=== PATIENT | male | born 1960 | race Caucasian/White ===

== ENCOUNTER 2018-05-26 14:58 | Outpatient (CLI) | payer BC ==
--- NOTE | 2018-05-27 09:19 | MRI ---
MRI RIGHT KNEE: DATE: 05/26/18. PROVIDED CLINICAL HISTORY: Right knee pain. FINDINGS: The anterior cruciate ligament, posterior cruciate ligament, medial collateral ligament, and lateral collateral ligamentous complex demonstrate an intact MR appearance, as does the extensor mechanism. There is complete nondisplaced. The medial meniscus demonstrates no evidence for tear. There is articular cartilage irregularity involving the lateral femorotibial joint. There is signal inhomogeneity involving the patellar articular cartilage. There is a small knee joint effusion. No focal concerning regional marrow or muscular signal abnorma lity is apparent. IMPRESSION: 1. Complex nondisplaced lateral meniscal tear. 2. Small knee joint effusion. 3. Lateral femorotibial and patellofemoral articular chondrosis. POS: [facility]
== END 2018-05-26 14:59 | disposition home or self-care (01) ==
LOC: TBSIIMAG 14:58
PROVIDERS: ATTEND Family Medicine
DX: M25.561 Pain in right knee (principal); S83.281A Other tear of lateral meniscus, current injury, right knee, initial encounter; M25.461 Effusion, right knee

== ENCOUNTER 2019-09-19 08:08 | Outpatient (CLI) | payer BC ==
--- NOTE | 2019-09-19 10:39 | MRI ---
MRI PELVIS WITH AND WITHOUT CONTRAST: History: R97.2. Elevated PSA. Comparison: None. Findings: Multiplanar multisequence MRI of the pelvis performed prior to and after the intravenous administrati on of contrast. The exam was reviewed on an independent 3D workstation. Diffusion restriction evaluation is limited due to the amount of stool within the rectum. The prostate measures 4.6 x 2.7 x 3.8 cm for a volume of 23.93 mL. Full zone: No significant diffusion restriction within the peripheral zone. Transitional zone: There is lentiform bowel circumscribed homogeneous moderately hyperintense signal throughout the transitional zone from the base to the apex with associated high-grade diffusion restriction as well as type I kinetics. The signal alteration involves the anterior fibromuscular stroma and extends near the base of the uri nary bladder. Prostatic capsule: Intact Neurovascular bundles: Intact Lymph nodes: Small bilateral external iliac lymph nodes. No adenopathy. Bones: On the large [id number] T1 weighted imaging sequence there are no abnormal foci of marrow s ignal replacement to suggest osseous metastatic disease. Pelvic soft tissues: Moderate fat containing right indirect inguinal hernia. Impression: 1. PI-RADS Category 5: Very high (clinically significant cancer is highly likely to be present). This throughout the transitional zone from the base to the apex extending into the anterior fibromuscular stroma with a size of 2.5 x 1 x 2 cm. 2. No evidence for local regional lymphatic or osseous metastatic disease. 3. Intact neurovascular bundles and prostatic capsule. 4. No definite seminal vesicle nor urinary bladder involvement. Transcribed Date/Time: 09/19/2019 10:45 AM
[2019-09-19] MEDS ORDERED: Magnevist 469MG/ML 20 ML VIAL ONE (16:36)
== END 2019-09-19 08:09 | disposition home or self-care (01) ==
LOC: TBSIIMAG 08:08
PROVIDERS: ATTEND Urology
DX: R97.20 Elevated prostate specific antigen [PSA] (principal)
CPT/HCPCS: 72197; A9579

== ENCOUNTER 2019-09-28 08:00 | Outpatient (CLI) | payer BC ==
--- NOTE | 2019-09-28 08:59 | CT ---
CT Abdomen Pelvis W WO con HISTORY: Elevated PSA COMPARISON: None. FINDINGS: There is elevation of the left hemidiaphragm with adjacent mild atelectatic change. No calc ified gallstones are seen. The liver, spleen, pancreas and adrenal glands are normal. No calculi are seen in the kidneys, ureters or the urinary bladder. No hydroureteronephrosis seen on either side. There is a 11 x 12 x 19 mm low-density lesion in the right inferior renal cortex which does not meet CT criteria for a simple cyst. There is normal contrast excretion into the pelvic calyc eal systems and ureters bilaterally. No free air, free fluid or lymphadenopathy seen in the abdomen or pelvis. There are vascular calcific ations without evidence of aneurysmal dilatation of the abdominal aorta. There are degenerative changes in the spine. IMPRESSION: Indeterminate lesion in the inferior pole of the right kidney. Evaluation with ultrasound would be helpful.
[2019-09-28] MEDS ORDERED: Iopamidol-370 76% 500 ML 1 ML ONE (13:47)
== END 2019-09-28 08:01 | disposition home or self-care (01) ==
LOC: BICCT 08:00
PROVIDERS: ATTEND Urology
DX: R97.20 Elevated prostate specific antigen [PSA] (principal); R33.9 Retention of urine, unspecified; R82.71 Bacteriuria; R31.29 Other microscopic hematuria
CPT/HCPCS: 74178; Q9967

== ENCOUNTER 2019-10-16 06:34 | Day surgery (SDC) | payer BC ==
[2019-10-06 12:49] VITALS: BMI 33.7
[2019-10-06 14:00] LABS: Hemoglobin 15.6 g/dL (14.0-18.0); Mean Corpuscular HGB CONC 32.9 g/dL (32.0-36.0); Mean Corpuscular Hemoglobin 28.8 pg (27.0-31.0); Mean Corpuscular Volume 87.8 fL (78.0-98.0); Mean Platelet Volume 7.1 fL (7.4-10.4); Platelet Count 256 thou/uL (130-400); RBC Distribution Width 11.9 % (11.5-14.5); White Blood Cell (WBC) Count 10.9 thou/uL (4.8-10.8)
[2019-10-06 14:04] LABS: PTT 30.2 SEC (22.9-36.1); Prothrombin Time 12.7 SEC (12.0-14.7)
[2019-10-06 14:06] LABS: Bacteria/HPF None Seen HPF (None Seen); Bilirubin Negative (Negative); Blood, Urine Negative (Negative); Clarity Clear (Clear); Glucose, Urine (Dipstick) Normal (Negative); Leukocyte Negative Leu/uL (Negative); Nitrite Negative (Negative); Protein, Urine (Dipstick) Negative (Neg-Trace); RBC/HPF 0-3 HPF (0-3); Squamous Epithelial None Seen HPF (0-3); Urobilinogen Normal mg/dL (Less than 2); WBC/HPF 0-3 HPF (0-3)
[2019-10-06 14:21] LABS: Anion Gap 14 mmol/L (10-20); BUN (Urea Nitrogen) 16 mg/dL (8.4-25.7); Calc. Creatinine Clearance 158 mL/min (70-130); Calcium 9.5 mg/dL (7.8-10.44); Carbon Dioxide 28 mmol/L (22-29); Chloride 104 mmol/L (98-107); Estimated GFR-MDRD 79; Glucose 85 mg/dL (70-105); Potassium 4.2 mmol/L (3.5-5.1); Sodium 142 mmol/L (136-145)
--- NOTE | 2019-10-09 18:57 | EKG ---
Test Reason : Blood Pressure : / mmHG Vent. Rate : 085 BPM Atrial Rate : 085 BPM P-R Int : 164 ms QRS Dur : 094 ms QT Int : 374 ms P-R-T Axes : 042 037 047 degrees QTc Int : 445 ms Normal sinus rhythm Increased R/S ratio in V1, consider early transition or posterior infarct Abnormal ECG When compared with ECG of 19-JAN-2005 07:15, No significant change was found Confirmed by ELANA RAMOS, SIshmael ([id number]) on 10/09/2019 6:57:26 PM Referred By: NISHI Confirmed By:DR. Jewels HUITRON MD
[2019-10-16] MEDS ORDERED: cefTRIAXone\\ROCEPHIN 2 GM VIAL ONE (07:31)
[2019-10-16] MEDS ORDERED: Levofloxacin 500 mg/D5W 100 ml Premix Bag ONE (07:31)
[2019-10-16] MEDS ORDERED: Sodium Chloride 0.9% 100 ML ONE (07:31)
[2019-10-16] MEDS ORDERED: Fentanyl 100 MCG/2 ML VIAL ONE (09:35)
[2019-10-16] MEDS ORDERED: Midazolam HCl 2 mg/2 ml Vial ONE (09:35)
[2019-10-16] MEDS ORDERED: PROPOFOL 200 MG/20 ML VIAL ONE (10:49)
[2019-10-16] MEDS ORDERED: ePHEDrine/0.9% NaCl/PF SYRINGE 50 mg/10 ml ONE (10:49)
[2019-10-16] MEDS ORDERED: Lidocaine 1% PF 5 ML VIAL ONE (10:49)
[2019-10-16] MEDS ORDERED: Phenazopyridine HCl 97.5 MG TABLET ONE ×2 (10:50)
--- NOTE | 2019-10-16 14:14 | OP ---
DATE OF PROCEDURE: 10/16/2019 PRIMARY CARE PHYSICIAN: Rosi Beltran DO. PREOPERATIVE DIAGNOSES: 1. A 59-year-old male with history of elevated PSA, prior biopsy negative for malignancy. 2. Persistent elevated PSA with increased PSA velocity of 7.2. 3. Unremarkable digital rectal examination. 4. Microscopic hematuria. POSTOPERATIVE DIAGNOSES: 1. A 59-year-old male with history of elevated PSA, prior biopsy negative for malignancy. 2. Persistent elevated PSA with increased PSA velocity of 7.2. 3. Unremarkable digital rectal examination. 4. Microscopic hematuria. PROCEDURES PERFORMED: 1. Flexible cystoscopy. 2. Transrectal ultrasound volume study. 3. Standard 12-core needle biopsy. 4. MRI fusion biopsy of region of interest. ANESTHESIA: LMA. COMPLICATIONS: None apparent. DISPOSITION: To recovery room in stable condition. INDICATIONS FOR PROCEDURE AND HISTORY: Mr. Rubin is a pleasant 59-year-old male with history of elevated PSA, family history of prostate cancer, in which he initially underwent prostate biopsy for elevated PSA, negative for malignancy. He had persistent elevated PSA with increased velocity of concern. Therefore, MRI was obtained, which does demonstrate a region of interest, PI-RADS 5, located in the anterior transitional zone base to apex measuring 2.5 x 1 x 2.0 cm. There is no significant lymphadenopathy with an intact neurovascular bundle. He was advised regarding MRI fusion biopsy. Subsequently, he has microscopic hematuria with CT demonstrates indeterminate small endophytic renal cyst on surveillance and presents today for concomitant flexible cystoscopy. Indications were reviewed as well as risks and complications including, but not limited to: Bleeding, pain, infection, injury to adjacent organs, urosepsis, chronic pain. Questions answered to his satisfaction. He desired to proceed. DESCRIPTION OF PROCEDURE: After an informed consent was signed, the patient was taken to the operating room and placed in a dorsal lithotomy position with the genital area prepped and draped in the usual surgical sterile fashion. Bilateral MAT hose SCDs and broad-spectrum antibiotics were placed. The patient was placed in supine position and we performed a flexible cystoscopy, which demonstrated normal anterior and posterior urethra with no evidence of urethral stricture. Mild bilobar hyperplasia was noted with no significant intravesical median lobe. The bladder was grossly unremarkable with no bladder tumors, stones, lesions of concern. The ureteral orifices were about 3 to 4 mm proximal to the bladder neck. At this time, a 16-Kazakh Brown catheter was placed and he was transitioned to a left lateral decubitus position with all pressure points padded and protected. A transrectal ultrasound probe was placed and we measured the prostate volume: Length of urethral length of 3.6, width of 4.3, height of 2.8, volume estimated to be 23.4 g. We subsequently left the Brown catheter in situ, to monitor degree of hematuria. At this time, we performed a region of interest. The region of interest was quite large and easily localized. We passed 4 needles at the region of interest and set as a separate cassette. Then, we subsequently performed 12 standard needle core prostate biopsy in a standard fashion, which he tolerated the procedure. Brown catheter was removed and he tolerated the procedure well and transported to the recovery room in stable condition. He is discharged with Levaquin x3 days, will follow up with me on 10/24 to review pathology. Job ID: [id number] [facility] HOSPITALIsabel
== END 2019-10-16 13:30 | disposition home or self-care (01) ==
LOC: SDC 06:34
PROVIDERS: ATTEND Urology
PROC: 0VB03ZX Excision of Prostate, Percutaneous Approach, Diagnostic (ICD-10-PCS; principal; 2019-10-16)
DX: C61 Malignant neoplasm of prostate (principal); N40.1 Benign prostatic hyperplasia with lower urinary tract symptoms; R33.8 Other retention of urine; R31.29 Other microscopic hematuria; R82.71 Bacteriuria; E78.00 Pure hypercholesterolemia, unspecified; Z91.018 Allergy to other foods
CPT/HCPCS: 80048; 81001; 85027; 85610; 85730; 87086; 88305; 93005; 93010; J0696; J1956; J2001; J2250; J2704; J3010; J3490

== ENCOUNTER 2019-12-12 07:50 | Outpatient (CLI) | payer BC ==
[2019-12-12] MEDS ORDERED: Magnevist 469MG/ML 20 ML VIAL ONE (10:06)
--- NOTE | 2019-12-12 15:45 | MRI ---
MRI OF THE PROSTATE WITHOUT AND WITH CONTRAST: 12/12/19 COMPARISON: None. HISTORY: Prostate cancer. Biopsy done in July. TECHNIQUE: Multiplanar and multisequence MR images were obtained of the prostate without and with IV contrast. FINDINGS: There is a large amount of stool and air in the patient's rectum which produces artifact on the diffu joseph sequence and ADC map limiting evaluation on this exam. There is mild hypertrophy of the central gland consistent with BPH. Prostate volume is approximately 22 mL. No suspicious low T2 signal is seen within the prostate. No IVS restricted diffusion is seen within t he prostate, but evaluation is limited. No obvious low signal is seen on the ADC map within the prost ate. No suspicious enhancement is seen within the prostate. The seminal vesicles are intact. Neurovascular bundles are intact. No pelvic adenopathy is seen. No m arrow signal abnormality is present. A small diverticulum is seen emanating from the left aspect of the urinary bladder. IMPRESSION: PI-RADS category 2 - low likelihood that a clinically significant cancer is present. Please note that this exam is limited secondary to significant amount of stool and air in the patient 's rectum. POS: [facility]
== END 2019-12-12 07:51 | disposition home or self-care (01) ==
LOC: TBSIIMAG 07:50
PROVIDERS: ATTEND Urology
DX: C61 Malignant neoplasm of prostate (principal)
CPT/HCPCS: 72197; A9579

== ENCOUNTER 2020-06-11 14:27 | Outpatient (CLI) | payer BC ==
[~2020-06-11 14:27] MED LIST: Iopamidol 370 76% 100 ML VIAL ONE
--- NOTE | 2020-06-11 15:59 | CT ---
CT OF THE ABDOMEN WITH AND WITHOUT IV CONTRAST: INDICATION: History of followup renal mass. COMPARISON: Prior CT of the abdomen and pelvis with and without contrast dated 11/07/2019. FINDINGS: The mildly hyperdense cyst involving the inferior pole of the right kidney measuring 1.3 cm is stable . No suspicious focal renal lesion is evident. No renal or ureteral calculus is evident. No hydron ephrosis is evident. No gross urothelial lesion is evident within the visualized partially opacified renal collecting system. There is stable eventration of the left hemidiaphragm and left basilar atelectasis. No focal hepatic lesion is evident. The gallbladder, pancreas, adrenal glands, and spleen appear wit hin normal limits. There is a mild amount of retained stool within the colon. There is a normal appendix in the right l ower quadrant. There is scattered degenerative and osteoarthritic change. IMPRESSION: 1. Stable 1.3 cm inferior pole right renal cyst. 2. Other chronic findings as above. POS: [facility]
== END 2020-06-11 14:28 | disposition home or self-care (01) ==
LOC: BICCT 14:27
PROVIDERS: ATTEND Urology
DX: N28.1 Cyst of kidney, acquired (principal); J98.11 Atelectasis; R19.5 Other fecal abnormalities; M19.90 Unspecified osteoarthritis, unspecified site
CPT/HCPCS: 74170; Q9967

== ENCOUNTER 2023-01-11 12:38 | Outpatient (CLI) | payer BC | END 2023-01-11 12:39 | disposition home or self-care (01) | LOC: BICULT 12:38 | PROVIDERS: ATTEND Urology | DX: N28.1 Cyst of kidney, acquired (principal) | CPT/HCPCS: 76770 ==